=== PATIENT | male | born 1955 | race Caucasian/White ===

== ENCOUNTER → 2018-03-09 | Outpatient (CLI) | payer BC | LOC: COL.RAD 03-08 14:15 | DX: R22.2 Localized swelling, mass and lump, trunk (principal) ==

== ENCOUNTER → 2019-08-16 | Outpatient (CLI) | payer BC | LOC: COL.RAD 08:24 | DX: M19.022 Primary osteoarthritis, left elbow (principal) | CPT/HCPCS: J3301; Q9967 ==